=== PATIENT | female | born 1985 ===

== ENCOUNTER 2017-02-07 23:07 | Inpatient (IN) ==
[2017-02-07] MEDS ORDERED: OXYTOCIN/LR 20 UNIT/1,000 ML BAG IV ONE (23:17)
[2017-02-07] MEDS ORDERED: ONDANSETRON 4 MG/2 ML VIAL IV PRN (23:22)
[2017-02-07] MEDS ORDERED: MEPERIDINE 50 MG/1 ML VIAL IM PRN (23:22)
[2017-02-07] MEDS ORDERED: BUTORPHANOL 2 MG/ML VIAL IV PRN (23:22)
[2017-02-07] MEDS ORDERED: OXYTOCIN/LR 30 UNIT/1,000 ML BAG IV PRN (23:26)
[2017-02-07] MEDS ORDERED: CITRIC ACID/SODIUM CITRATE 30 ML UDCUP PO PRN (23:29)
[2017-02-07] MEDS ORDERED: OXYTOCIN/LR 20 UNIT/1,000 ML BAG IV PRN (23:29)
[2017-02-07] MEDS ORDERED: LACTATED RINGERS 1,000 ML IV SCH (23:30)
[2017-02-07] MEDS ORDERED: TERBUTALINE 1 MG/1 ML VIAL SUBCUT ONE ×2 (23:32→23:33)
[2017-02-07] MEDS ORDERED: OXYTOCIN 10 UNIT/ML VIAL ONE (23:39)
[2017-02-07] MEDS: FAMOTIDINE 20 MG/2 ML VIAL IV PRN (23:41)
[2017-02-07 23:47] LABS: Basophils % 0.3 % (0.0-0.8); Eosinophils # 0.2 10*3/uL (0.0-0.87); Eosinophils % 1.8 % (0.00-10.9); Hematocrit 31.6 VOL% (35.7-47.0); Immature Granulocytes % 0.9 %; Immature Granulocytes Absolute 0.11 #; Lymphocytes % 22.8 % (21.3-54.2); Mean Corpuscular HGB Conc 31.6 GM/DL (32-36); Mean Corpuscular Hemoglobin 25 PG (27-34); Mean Corpuscular Volume 77.6 FL (87-102); Monocytes # 0.7 10*3/uL (0.11-0.8); Monocytes % 5.4 % (1.7-12.7); Neutrophils # 8.9 10*3/uL (1.4-7.4); Neutrophils % 68.8 % (38.7-73.9); Platelet Count 262 T/CUMM (130-400); Red Blood Count 4.07 MC/CUMM (3.8-5.5); Red Cell Distribution Width 14.6 % (9.3-17.3); White Blood Count 12.9 T/CUMM (4-12)
[2017-02-08 00:13] LABS: Albumin 2.3 G/DL (3.4-5.0); Bilirubin,Total 0.7 MG/DL (0.2-1.0); Calcium 7.9 MG/DL (8.5-10.1); Osmolality,Calculated 274.5 MOS/KG (273-304); Potassium 3.9 MMOL/L (3.5-5.1); Total Protein 6.3 G/DL (6.4-8.3)
[2017-02-08 00:31] LABS: Cord Venous Blood HCO3 22.2 MMOL/L; Cord Venous Blood PCO2 42.3 MMHG; Cord Venous Blood PO2 62.2 MMHG
[2017-02-08] MEDS ORDERED: fentaNYL 100 MCG/2 ML VIAL ONE (00:35)
[2017-02-08] MEDS ORDERED: MIDAZOLAM 2 MG/2 ML VIAL ONE (00:35)
[2017-02-08] MEDS ORDERED: HYDROmorphone 2 MG/1 ML VIAL ONE (00:37)
[2017-02-08] MEDS ORDERED: ETOMIDATE 20 MG/10 ML VIAL IV ONE (00:39)
[2017-02-08] MEDS ORDERED: SUCCINYLCHOLINE 200 MG/10 ML VIAL ONE (00:39)
[2017-02-08] MEDS ORDERED: NALOXONE 0.4 MG/ML VIAL IV PRN (00:40)
[2017-02-08] MEDS ORDERED: HYDROmorphone 2 MG/1 ML VIAL IV ONE (00:40)
[2017-02-08 00:59] LABS: HIV Antigen/Antibody Result Nonreactive (Nonreactive); Hepatitis B Surface Ag Quant 0.54 Index; Hepatitis B Surface Ag Result Negative (Negative)
[2017-02-08] MEDS ORDERED: HYDROmorphone PCA 30 MG/30 ML SYRINGE IV SCH (01:00)
[2017-02-08] MEDS: FAMOTIDINE 20 MG/2 ML VIAL IV PRN (02:00)
[2017-02-08 03:04] LABS: Rubella Antibody IgG 11.9 IU/ML
[2017-02-08] MEDS ORDERED: OXYTOCIN/LR 20 UNIT/1,000 ML BAG IV ONE (03:45)
[2017-02-08] MEDS ORDERED: ONDANSETRON 4 MG/2 ML VIAL IV PRN (03:45)
[2017-02-08] MEDS ORDERED: LACTATED RINGERS 1,000 ML IV SCH (03:45)
[2017-02-08] MEDS ORDERED: RHO(D) IMMUNE GLOBULIN 300 MCG SYRINGE IM ONE (03:45)
[2017-02-08] MEDS ORDERED: ACETAMINOPHEN 325 MG TABLET PO PRN (03:45)
[2017-02-08] MEDS ORDERED: KETOROLAC 30 MG/1 ML VIAL IV PRN (05:05)
[2017-02-08 08:04] LABS: Basophils % 0.1 % (0.0-0.8); Eosinophils % 0.1 % (0.00-10.9); Hematocrit 27.7 VOL% (35.7-47.0); Hemoglobin 9.1 GM/DL (12.0-16.0); Immature Granulocytes % 0.6 %; Immature Granulocytes Absolute 0.12 #; Lymphocytes # 1.6 10*3/uL (1.4-4.0); Lymphocytes % 8.3 % (21.3-54.2); Mean Corpuscular HGB Conc 32.9 GM/DL (32-36); Mean Corpuscular Hemoglobin 25 PG (27-34); Mean Corpuscular Volume 74.9 FL (87-102); Mean Platelet Volume 9.5 FL (9.6-12.0); Neutrophils # 16.6 10*3/uL (1.4-7.4); Neutrophils % 85.9 % (38.7-73.9); Platelet Count 217 T/CUMM (130-400); Red Cell Distribution Width 14.5 % (9.3-17.3); White Blood Count 19.3 T/CUMM (4-12)
[2017-02-08] MEDS: DOCUSATE SODIUM 100 MG CAPSULE PO SCH ×3 (08:15→22:38)
[2017-02-08] MEDS: ceFAZolin 1,000 MG in SYRINGE 1 EACH IV SCH ×2 (08:15→15:25)
[2017-02-08] MEDS: MULTIVITAMIN (PRENATAL) TABLET PO SCH (08:15)
[2017-02-08] MEDS: IBUPROFEN 800 MG TABLET PO PRN (14:43)
[2017-02-08] MEDS: SIMETHICONE CHEW 80 MG TABLET PO PRN (19:18)
[2017-02-08] MEDS: MAGNESIUM HYDROXIDE SUSP 30 ML UDCUP PO PRN (19:18)
[2017-02-08] MEDS ORDERED: diphenhydrAMINE CAP 25 MG CAPSULE PO PRN (23:58)
[2017-02-09] MEDS ORDERED: diphenhydrAMINE CAP 25 MG CAPSULE ONE (00:05)
[2017-02-09] MEDS: METOCLOPRAMIDE 10 MG TABLET PO SCH ×4 (00:13→23:23)
[2017-02-09] MEDS ORDERED: BISACODYL 10 MG SUPP RECTAL PRN (00:56)
[2017-02-09] MEDS: IBUPROFEN 800 MG TABLET PO PRN ×3 (01:57→19:29)
[2017-02-09] MEDS ORDERED: BENZOCAINE/MENTHOL LOZENGE 18/BOX PO PRN (06:02)
[2017-02-09] MEDS: MULTIVITAMIN (PRENATAL) TABLET PO SCH (08:22)
[2017-02-09] MEDS: DOCUSATE SODIUM 100 MG CAPSULE PO SCH ×2 (08:22→23:19)
[2017-02-09] MEDS: MAGNESIUM HYDROXIDE SUSP 30 ML UDCUP PO PRN ×2 (08:23→23:19)
[2017-02-09] MEDS: FERROUS SULFATE 325 MG TABLET PO SCH ×3 (08:23→23:19)
[2017-02-09] MEDS ORDERED: IBUPROFEN 800 MG TABLET ONE (19:25)
[2017-02-09] MEDS ORDERED: LORazepam 1 MG TABLET PO PRN ×3 (22:58→23:30)
[2017-02-09] MEDS: SIMETHICONE CHEW 80 MG TABLET PO PRN (23:19)
[2017-02-10 07:40] VITALS: BP 108/68
[2017-02-10] MEDS: MULTIVITAMIN (PRENATAL) TABLET PO SCH (09:30)
[2017-02-10] MEDS: DOCUSATE SODIUM 100 MG CAPSULE PO SCH (09:30)
[2017-02-10] MEDS: FERROUS SULFATE 325 MG TABLET PO SCH (09:31)
[2017-02-10] MEDS: IBUPROFEN 800 MG TABLET PO PRN (11:59)
== END 2017-02-10 14:50 | disposition home or self-care (01) | DRG 540 ==
LOC: N.LDOUT 23:07 → N.LD 23:10 → N.OB 02-08 03:20
PROVIDERS: ADMIT Obstetrics & Gynecology; ATTEND Obstetrics & Gynecology
PROC: LDCSECT (ICD-10-PCS; 2017-02-07 23:55)

== ENCOUNTER 2017-12-16 04:36 | Inpatient (IN) ==
[2017-12-16] MEDS ORDERED: BUTORPHANOL 2 MG/ML VIAL IV PRN (05:12)
[2017-12-16] MEDS ORDERED: ONDANSETRON 4 MG/2 ML VIAL IV PRN (05:12)
[2017-12-16] MEDS: BETAMETH SODIUM PHOS/ACETATE 30 MG/5 ML VIAL IM SCH ×2 (05:19→17:03)
[2017-12-16 05:31] LABS: Apearance,Urine CLOUDY (Clear); Bilirubin,Urine Negative (Negative); Blood, Urine Negative (Negative); Glucose,Urine (UA) Negative (Negative); Ketones,Urine Negative (Negative); Mucus,Urine Occasional /LPF (Occasional); Nitrite,Urine Negative (Negative); Protein,Urine Negative; RBC,Urine 3 /HPF (0-4); Renal Epithelial Cells,Urine Occasional /HPF (<1); Squamous Epithelial Cell,Urine Occasional /HPF (0-10); Urine Color Red (Yellow); Urine Specific Gravity 1.013 (1.001-1.035); WBC,Urine 8 /HPF (0-6)
[2017-12-16] MEDS: LACTATED RINGERS 1,000 ML IV SCH ×3 (05:31→23:33)
[2017-12-16] MEDS ORDERED: MEPERIDINE 50 MG/1 ML VIAL IV PRN (05:33)
[2017-12-16 05:41] LABS: Barbiturates Screen,Urine Negative (Negative); Benzodiazepines Screen,Urine Negative (Negative); Cannabinoid Screen,Urine Negative (Negative); Opiate Screen,Urine Negative (Negative); Phencyclidine Screen,Urine Negative (Negative)
[2017-12-16 05:43] LABS: Basophils % 0.4 % (0.0-0.8); Eosinophils # 0.4 10*3/uL (0.0-0.87); Eosinophils % 3.9 % (0.00-10.9); Hemoglobin 9.3 GM/DL (12.0-16.0); Immature Granulocytes % 0.6 %; Immature Granulocytes Absolute 0.06 #; Lymphocytes # 2.7 10*3/uL (1.4-4.0); Mean Corpuscular Hemoglobin 24 PG (27-34); Mean Corpuscular Volume 76.5 FL (87-102); Mean Platelet Volume 9.9 FL (9.6-12.0); Monocytes # 0.5 10*3/uL (0.11-0.8); Monocytes % 5.4 % (1.7-12.7); Neutrophils # 6.2 10*3/uL (1.4-7.4); Neutrophils % 62.7 % (38.7-73.9); Platelet Count 196 T/CUMM (130-400); Red Blood Count 3.92 MC/CUMM (3.8-5.5); Red Cell Distribution Width 15.4 % (9.3-17.3); White Blood Count 9.8 T/CUMM (4-12)
[2017-12-16 06:09] LABS: Albumin 2.4 G/DL (3.4-5.0); Bilirubin,Total 0.4 MG/DL (0.2-1.0); Calcium 8.2 MG/DL (8.5-10.1); Osmolality,Calculated 276.4 MOS/KG (273-304); Potassium 3.6 MMOL/L (3.5-5.1); Total Protein 6.5 G/DL (6.4-8.3)
[2017-12-16] MEDS ORDERED: cefTRIAXone 1,000 MG in SYRINGE 1 EACH IV ONE (06:30)
[2017-12-16] MEDS ORDERED: diphenhydrAMINE 50 MG/1 ML VIAL IV ONE (06:51)
[2017-12-16] MEDS ORDERED: diphenhydrAMINE 50 MG/1 ML VIAL ONE (06:53)
[2017-12-16 07:34] VITALS: BP 114/66
[2017-12-16 09:31] LABS: HIV Antigen/Antibody Result Nonreactive (Nonreactive); Hepatitis B Surface Ag Quant < 0.10 Index; Hepatitis B Surface Ag Result Negative (Negative); Rubella Antibody IgG 9.6 IU/ML
[2017-12-16] MEDS: CLINDAMYCIN INJ 600 MG in PREMIX 1 EACH IV SCH ×2 (13:13→21:30)
[2017-12-16] MEDS: ACETAMINOPHEN 500 MG TABLET PO PRN (17:07)
[2017-12-16] MEDS ORDERED: PROMETHAZINE 25 MG/1 ML VIAL IM ONE (19:18)
[2017-12-16] MEDS ORDERED: MEPERIDINE 25 MG/1 ML VIAL IM ONE (19:18)
[2017-12-17] MEDS: CLINDAMYCIN INJ 600 MG in PREMIX 1 EACH IV SCH (05:46)
[2017-12-17 06:24] LABS: Basophils % 0.1 % (0.0-0.8); Hematocrit 30.3 VOL% (35.7-47.0); Hemoglobin 9.3 GM/DL (12.0-16.0); Immature Granulocytes Absolute 0.12 #; Lymphocytes # 1.3 10*3/uL (1.4-4.0); Lymphocytes % 10.6 % (21.3-54.2); Mean Corpuscular HGB Conc 30.7 GM/DL (32-36); Mean Corpuscular Hemoglobin 23 PG (27-34); Mean Corpuscular Volume 75.6 FL (87-102); Mean Platelet Volume 9.2 FL (9.6-12.0); Monocytes # 0.5 10*3/uL (0.11-0.8); Monocytes % 3.8 % (1.7-12.7); Neutrophils # 10.5 10*3/uL (1.4-7.4); Neutrophils % 84.5 % (38.7-73.9); Platelet Count 215 T/CUMM (130-400); Red Blood Count 4.01 MC/CUMM (3.8-5.5); Red Cell Distribution Width 15.5 % (9.3-17.3); White Blood Count 12.5 T/CUMM (4-12)
[2017-12-17] MEDS: BETAMETH SODIUM PHOS/ACETATE 30 MG/5 ML VIAL IM SCH (06:38)
[2017-12-17] MEDS: ACETAMINOPHEN 500 MG TABLET PO PRN (17:31)
[2017-12-18 06:05] LABS: Basophils % 0.2 % (0.0-0.8); Eosinophils % 0.2 % (0.00-10.9); Hematocrit 26.6 VOL% (35.7-47.0); Hemoglobin 8.3 GM/DL (12.0-16.0); Immature Granulocytes % 1.6 %; Lymphocytes # 2.3 10*3/uL (1.4-4.0); Lymphocytes % 18.3 % (21.3-54.2); Mean Corpuscular HGB Conc 31.2 GM/DL (32-36); Mean Corpuscular Hemoglobin 24 PG (27-34); Mean Corpuscular Volume 75.6 FL (87-102); Mean Platelet Volume 9.7 FL (9.6-12.0); Monocytes # 0.8 10*3/uL (0.11-0.8); Monocytes % 6.7 % (1.7-12.7); Platelet Count 209 T/CUMM (130-400); Red Blood Count 3.52 MC/CUMM (3.8-5.5); Red Cell Distribution Width 15.8 % (9.3-17.3); White Blood Count 12.3 T/CUMM (4-12)
== END 2017-12-18 11:36 | disposition home or self-care (01) | DRG 566 ==
LOC: N.LDOUT 04:36 → N.LD 04:38
PROVIDERS: ADMIT Obstetrics & Gynecology; ATTEND Obstetrics & Gynecology

== ENCOUNTER 2018-02-02 15:28 | Inpatient (IN) ==
[2018-02-02] MEDS ORDERED: CITRIC ACID/SODIUM CITRATE 30 ML UDCUP PO ONE (15:58)
[2018-02-02] MEDS ORDERED: CLINDAMYCIN INJ 900 MG in PREMIX 1 EACH IV ONE (15:58)
[2018-02-02] MEDS ORDERED: FAMOTIDINE 20 MG/2 ML VIAL IV ONE (15:58)
[2018-02-02] MEDS ORDERED: OXYTOCIN/LR 30 UNIT/1,000 ML BAG IV ONE (16:00)
[2018-02-02] MEDS ORDERED: OXYTOCIN 10 UNIT/ML VIAL IM ONE (16:00)
[2018-02-02 16:27] LABS: Basophils % 0.4 % (0.0-0.8); Eosinophils # 0.3 10*3/uL (0.0-0.87); Eosinophils % 2.4 % (0.00-10.9); Hematocrit 29.2 VOL% (35.7-47.0); Hemoglobin 8.8 GM/DL (12.0-16.0); Immature Granulocytes % 0.6 %; Immature Granulocytes Absolute 0.06 #; Lymphocytes # 2.5 10*3/uL (1.4-4.0); Lymphocytes % 24.3 % (21.3-54.2); Mean Corpuscular HGB Conc 30.1 GM/DL (32-36); Mean Corpuscular Hemoglobin 22 PG (27-34); Mean Corpuscular Volume 71.4 FL (87-102); Mean Platelet Volume 9.4 FL (9.6-12.0); Monocytes # 0.6 10*3/uL (0.11-0.8); Monocytes % 6.2 % (1.7-12.7); Neutrophils # 6.8 10*3/uL (1.4-7.4); Neutrophils % 66.1 % (38.7-73.9); Platelet Count 289 T/CUMM (130-400); Red Blood Count 4.09 MC/CUMM (3.8-5.5); Red Cell Distribution Width 16.2 % (9.3-17.3); White Blood Count 10.2 T/CUMM (4-12)
[2018-02-02] MEDS: LACTATED RINGERS 1,000 ML IV SCH ×2 (16:49→16:51)
[2018-02-02 16:50] LABS: Alanine Aminotransferase 11 U/L (13-56); Albumin 2.5 G/DL (3.4-5.0); Alkaline Phosphatase 168 U/L (45-117); Aspartate Amino Transferase 14 U/L (0-37); Bilirubin,Total < 0.39 MG/DL (0.2-1.0); Blood Urea Nitrogen 11 MG/DL (7-18); Calcium 8.2 MG/DL (8.5-10.1); Glucose 89 MG/DL (74-106); Osmolality,Calculated 276.4 MOS/KG (273-304); Potassium 3.8 MMOL/L (3.5-5.1); Sodium 140 MMOL/L (136-145); Total Protein 6.8 G/DL (6.4-8.3)
[2018-02-02 17:50] LABS: Cord Arterial Blood HCO3 21.4 MMOL/L; Cord Venous Blood HCO3 24.7 MMOL/L; Cord Venous Blood PCO2 42.8 MMHG; Cord Venous Blood PO2 32.6 MMHG
[2018-02-02 17:55] LABS: Apearance,Urine CLEAR (Clear); Bacteria,Urine Occasional /HPF (Few); Bilirubin,Urine Negative (Negative); Blood, Urine Negative (Negative); Glucose,Urine (UA) Negative (Negative); Ketones,Urine Negative (Negative); Mucus,Urine Occasional /LPF (Occasional); Nitrite,Urine Negative (Negative); Protein,Urine Negative; RBC,Urine 1 /HPF (0-4); Squamous Epithelial Cell,Urine Occasional /HPF (0-10); Urine Color Yellow (Yellow); Urine Specific Gravity 1.017 (1.001-1.035); WBC,Urine 1 /HPF (0-6)
[2018-02-02] MEDS ORDERED: fentaNYL 100 MCG/2 ML VIAL ONE (18:10)
[2018-02-02] MEDS ORDERED: MIDAZOLAM 2 MG/2 ML VIAL ONE (18:10)
[2018-02-02] MEDS ORDERED: ONDANSETRON 4 MG/2 ML VIAL ONE ×2 (18:11→18:34)
[2018-02-02] MEDS ORDERED: MORPHINE 10 MG/10 ML VIAL ONE (18:11)
[2018-02-02] MEDS ORDERED: BUPIVACAINE SPINAL 0.75% 2 ML AMP SPINAL ONE (18:11)
[2018-02-02] MEDS ORDERED: ONDANSETRON 4 MG/2 ML VIAL IV PRN ×2 (18:30→18:53)
[2018-02-02] MEDS ORDERED: RHO(D) IMMUNE GLOBULIN 300 MCG SYRINGE IM ONE (18:53)
[2018-02-02] MEDS ORDERED: SIMETHICONE CHEW 80 MG TABLET PO PRN (18:53)
[2018-02-02] MEDS ORDERED: OXYTOCIN/LR 20 UNIT/1,000 ML BAG IV ONE (18:53)
[2018-02-02] MEDS ORDERED: ACETAMINOPHEN 325 MG TABLET PO PRN (18:53)
[2018-02-02] MEDS ORDERED: diphenhydrAMINE 50 MG/1 ML VIAL IV PRN (20:04)
[2018-02-02] MEDS ORDERED: hydrOXYzine HCL 25 MG/1 ML VIAL IM PRN (22:05)
[2018-02-02] MEDS: DOCUSATE SODIUM 100 MG CAPSULE PO SCH (23:06)
[2018-02-03] MEDS: IBUPROFEN 800 MG TABLET PO PRN ×3 (01:26→19:40)
[2018-02-03] MEDS: ceFAZolin 1,000 MG in SYRINGE 1 EACH IV SCH ×2 (04:36→11:17)
[2018-02-03] MEDS: LACTATED RINGERS 1,000 ML IV SCH ×2 (04:55)
[2018-02-03 05:55] LABS: Basophils # 0.1 10*3/uL (0.0-0.2); Basophils % 0.4 % (0.0-0.8); Eosinophils # 0.1 10*3/uL (0.0-0.87); Eosinophils % 0.9 % (0.00-10.9); Hematocrit 25.2 VOL% (35.7-47.0); Hemoglobin 7.8 GM/DL (12.0-16.0); Immature Granulocytes % 0.5 %; Immature Granulocytes Absolute 0.06 #; Lymphocytes # 2.8 10*3/uL (1.4-4.0); Lymphocytes % 21.1 % (21.3-54.2); Mean Corpuscular Hemoglobin 22 PG (27-34); Mean Corpuscular Volume 70.6 FL (87-102); Mean Platelet Volume 9.9 FL (9.6-12.0); Monocytes # 0.9 10*3/uL (0.11-0.8); Monocytes % 6.7 % (1.7-12.7); Neutrophils # 9.2 10*3/uL (1.4-7.4); Neutrophils % 70.4 % (38.7-73.9); Platelet Count 240 T/CUMM (130-400); Red Blood Count 3.57 MC/CUMM (3.8-5.5); Red Cell Distribution Width 16.2 % (9.3-17.3); White Blood Count 13.1 T/CUMM (4-12)
[2018-02-03] MEDS: MAGNESIUM HYDROXIDE SUSP 30 ML UDCUP PO PRN ×2 (09:03→19:40)
[2018-02-03] MEDS: MULTIVITAMIN (PRENATAL) TABLET PO SCH (09:03)
[2018-02-03] MEDS: FERROUS SULFATE 325 MG TABLET PO SCH ×3 (09:03→21:00)
[2018-02-03] MEDS: DOCUSATE SODIUM 100 MG CAPSULE PO SCH ×3 (09:03→21:00)
[2018-02-03] MEDS ORDERED: SODIUM CHLORIDE 0.9% 1,000 ML IV PRN (10:19)
[2018-02-03 18:29] LABS: Hematocrit 32.8 VOL% (35.7-47.0); Hemoglobin 10.4 GM/DL (12.0-16.0)
[2018-02-04 07:41] VITALS: BP 106/67
[2018-02-04] MEDS: MULTIVITAMIN (PRENATAL) TABLET PO SCH (09:57)
[2018-02-04] MEDS: FERROUS SULFATE 325 MG TABLET PO SCH (09:57)
[2018-02-04] MEDS: DOCUSATE SODIUM 100 MG CAPSULE PO SCH (09:57)
[2018-02-04] MEDS ORDERED: INFLUENZA VIRUS VACCINE 0.5 ML SYRINGE IM ONE (10:00)
== END 2018-02-04 12:30 | disposition home or self-care (01) | DRG 540 ==
LOC: N.LDOUT 15:28 → N.LD 15:29 → N.OB 21:38
PROVIDERS: ADMIT Obstetrics & Gynecology; ATTEND Obstetrics & Gynecology
PROC: LDCSECT (ICD-10-PCS; 2018-02-02 16:00)

== ENCOUNTER 2018-12-20 05:39 | Inpatient (IN) ==
[2018-12-20] MEDS ORDERED: LACTATED RINGERS 500 ML IV PRN (06:06)
[2018-12-20] MEDS ORDERED: ONDANSETRON 4 MG/2 ML VIAL IV PRN ×2 (06:06→09:39)
[2018-12-20] MEDS ORDERED: LACTATED RINGERS 1,000 ML IV SCH ×2 (06:30→10:00)
[2018-12-20] MEDS ORDERED: CITRIC ACID/SODIUM CITRATE 30 ML UDCUP PO ONE (06:33)
[2018-12-20] MEDS ORDERED: CLINDAMYCIN INJ 900 MG in PREMIX 1 EACH IV ONE (06:33)
[2018-12-20] MEDS ORDERED: FAMOTIDINE 20 MG/2 ML VIAL IV ONE (06:33)
[2018-12-20] MEDS ORDERED: OXYTOCIN/LR 30 UNIT/1,000 ML BAG IV ONE (06:33)
[2018-12-20] MEDS ORDERED: OXYTOCIN 10 UNIT/ML VIAL IM ONE (06:33)
[2018-12-20 06:53] LABS: Basophils % 0.3 % (0.0-0.8); Eosinophils # 0.4 10*3/uL (0.0-0.87); Eosinophils % 4.8 % (0.00-10.9); Hematocrit 29.6 VOL% (35.7-47.0); Hemoglobin 8.8 GM/DL (12.0-16.0); Immature Granulocytes % 0.6 %; Immature Granulocytes Absolute 0.05 #; Lymphocytes # 2.3 10*3/uL (1.4-4.0); Lymphocytes % 29.6 % (21.3-54.2); Mean Corpuscular HGB Conc 29.7 GM/DL (32-36); Mean Corpuscular Volume 71.8 FL (87-102); Mean Platelet Volume 10.1 FL (9.6-12.0); Monocytes % 6.9 % (1.7-12.7); Neutrophils % 57.8 % (38.7-73.9); Platelet Count 246 T/CUMM (130-400); Red Blood Count 4.12 MC/CUMM (3.8-5.5); Red Cell Distribution Width 17.8 % (9.3-17.3); White Blood Count 7.9 T/CUMM (4-12)
[2018-12-20 07:34] LABS: Alanine Aminotransferase < 9 U/L (13-56); Albumin 2.4 G/DL (3.4-5.0); Alkaline Phosphatase 147 U/L (45-117); Aspartate Amino Transferase 12 U/L (0-37); Blood Urea Nitrogen 10 MG/DL (7-18); Calcium 8.3 MG/DL (8.5-10.1); Estimated Glom Filtration Rate 142 ML/MIN; Glucose 81 MG/DL (74-106); Osmolality,Calculated 274.5 MOS/KG (273-304); Total Protein 6.5 G/DL (6.4-8.3)
[2018-12-20] MEDS ORDERED: DEXAMETHASONE 4 MG/1 ML VIAL ONE (08:28)
[2018-12-20] MEDS ORDERED: ROPIVACAINE 0.5% 30 ML VIAL ONE (08:28)
[2018-12-20] MEDS ORDERED: ACETAMINOPHEN 325 MG TABLET PO PRN (09:39)
[2018-12-20] MEDS ORDERED: SIMETHICONE CHEW 80 MG TABLET PO PRN (09:39)
[2018-12-20] MEDS ORDERED: MAGNESIUM HYDROXIDE SUSP 30 ML UDCUP PO PRN (09:39)
[2018-12-20] MEDS ORDERED: OXYTOCIN/LR 20 UNIT/1,000 ML BAG IV ONE (09:39)
[2018-12-20] MEDS ORDERED: RHO(D) IMMUNE GLOBULIN 300 MCG SYRINGE IM ONE (09:39)
[2018-12-20] MEDS ORDERED: PHENYLEPHRINE 1 MG/10 ML SYRINGE IV ONE (10:00)
[2018-12-20] MEDS ORDERED: fentaNYL 100 MCG/2 ML VIAL ONE (10:00)
[2018-12-20] MEDS ORDERED: MIDAZOLAM 2 MG/2 ML VIAL ONE (10:00)
[2018-12-20] MEDS ORDERED: ceFAZolin 1,000 MG in SYRINGE 1 EACH IV SCH (10:00)
[2018-12-20] MEDS ORDERED: BUPIVACAINE SPINAL 0.75% 2 ML AMP SPINAL ONE (10:01)
[2018-12-20] MEDS ORDERED: MORPHINE 10 MG/10 ML VIAL ONE (10:01)
[2018-12-20 10:08] LABS: Apearance,Urine Clear (Clear); Bilirubin,Urine Negative (Negative); Blood, Urine NEGATIVE (Negative); Glucose,Urine (UA) Negative (Negative); Ketones,Urine Negative (Negative); Mucus,Urine Few /LPF (Occasional); Nitrite,Urine Negative (Negative); Protein,Urine 30 MG/DL; RBC,Urine <1 /HPF (0-4); Squamous Epithelial Cell,Urine Few /HPF (0-10); Urine Color Amber (Yellow); Urine Specific Gravity 1.025 (1.001-1.035); WBC,Urine <1 /HPF (0-6)
[2018-12-20] MEDS ORDERED: diphenhydrAMINE 50 MG/1 ML VIAL IV PRN (11:20)
[2018-12-20] MEDS ORDERED: CLINDAMYCIN INJ 900 MG in PREMIX 1 EACH IV SCH (12:09)
[2018-12-20] MEDS: IBUPROFEN 800 MG TABLET PO PRN (12:59)
[2018-12-20] MEDS: CLINDAMYCIN INJ 900 MG in PREMIX 1 EACH IV SCH (16:23)
[2018-12-20 16:54] LABS: Basophils % 0.1 % (0.0-0.8); Hematocrit 29.2 VOL% (35.7-47.0); Hemoglobin 8.7 GM/DL (12.0-16.0); Immature Granulocytes % 0.8 %; Immature Granulocytes Absolute 0.12 #; Lymphocytes % 6.8 % (21.3-54.2); Mean Corpuscular HGB Conc 29.8 GM/DL (32-36); Mean Corpuscular Volume 71.7 FL (87-102); Monocytes % 1.9 % (1.7-12.7); Neutrophils % 90.4 % (38.7-73.9); Platelet Count 232 T/CUMM (130-400); Red Blood Count 4.07 MC/CUMM (3.8-5.5); Red Cell Distribution Width 17.5 % (9.3-17.3)
[2018-12-20 16:56] LABS: White Blood Count 15.4 T/CUMM (4-12)
[2018-12-20] MEDS ORDERED: METOCLOPRAMIDE 10 MG TABLET PO SCH (19:00)
[2018-12-20] MEDS ORDERED: FERROUS SULFATE 325 MG TABLET PO SCH (21:00)
[2018-12-20] MEDS: DOCUSATE SODIUM 100 MG CAPSULE PO SCH (21:24)
[2018-12-21] MEDS: CLINDAMYCIN INJ 900 MG in PREMIX 1 EACH IV SCH (01:02)
[2018-12-21] MEDS: ALUMINUM/MAGNES/SIMETH MAX STR 30 ML UDCUP PO PRN ×2 (01:56→07:22)
[2018-12-21 05:16] LABS: Basophils % 0.2 % (0.0-0.8); Eosinophils # 0.1 10*3/uL (0.0-0.87); Eosinophils % 0.7 % (0.00-10.9); Hematocrit 26.4 VOL% (35.7-47.0); Hemoglobin 7.9 GM/DL (12.0-16.0); Immature Granulocytes Absolute 0.15 #; Lymphocytes # 3.1 10*3/uL (1.4-4.0); Lymphocytes % 20.8 % (21.3-54.2); Mean Corpuscular HGB Conc 29.9 GM/DL (32-36); Mean Corpuscular Volume 71.9 FL (87-102); Mean Platelet Volume 9.9 FL (9.6-12.0); Monocytes % 8.8 % (1.7-12.7); NRBC # 0.02 10*3/uL; Neutrophils % 68.5 % (38.7-73.9); Platelet Count 240 T/CUMM (130-400); Red Blood Count 3.67 MC/CUMM (3.8-5.5); Red Cell Distribution Width 17.7 % (9.3-17.3)
[2018-12-21] MEDS: METOCLOPRAMIDE 10 MG TABLET PO SCH ×2 (07:22→14:54)
[2018-12-21] MEDS: FERROUS SULFATE 325 MG TABLET PO SCH ×3 (08:35→21:08)
[2018-12-21] MEDS: DOCUSATE SODIUM 100 MG CAPSULE PO SCH ×2 (08:35→21:08)
[2018-12-21] MEDS: MULTIVITAMIN (PRENATAL) TABLET PO SCH (08:36)
[2018-12-21] MEDS ORDERED: SODIUM CHLORIDE 0.9% 1,000 ML IV PRN (09:20)
[2018-12-21 18:30] LABS: Hematocrit 33.2 VOL% (35.7-47.0)
[2018-12-21 18:31] LABS: Hemoglobin 10.1 GM/DL (12.0-16.0)
[2018-12-21] MEDS: IBUPROFEN 800 MG TABLET PO PRN (21:08)
[2018-12-22] MEDS: METOCLOPRAMIDE 10 MG TABLET PO SCH (04:40)
[2018-12-22] MEDS: FERROUS SULFATE 325 MG TABLET PO SCH (09:26)
[2018-12-22] MEDS: DOCUSATE SODIUM 100 MG CAPSULE PO SCH (09:26)
[2018-12-22] MEDS: MULTIVITAMIN (PRENATAL) TABLET PO SCH (09:29)
[2018-12-22] MEDS: IBUPROFEN 800 MG TABLET PO PRN (09:36)
[2018-12-22 11:26] VITALS: BP 114/75
== END 2018-12-22 16:00 | disposition home or self-care (01) | DRG 540 ==
LOC: N.LDOUT 05:39 → N.LD 05:41 → N.OB 12:14
PROVIDERS: ADMIT Obstetrics & Gynecology; ATTEND Obstetrics & Gynecology
PROC: LDCSECT (ICD-10-PCS; 2018-12-20 08:30)

== ENCOUNTER 2020-01-19 18:58 | Inpatient (IN) ==
[2020-01-19] MEDS ORDERED: oxyCODONE/ACETAMINOPHEN 5-325 MG TABLET PO ONE (19:52)
[2020-01-19 20:00] LABS: Bacteria,Urine Occasional /HPF (Few); Bilirubin,Urine Small mg/dL (Negative); Blood, Urine Moderate mg/dL (Negative); Glucose,Urine (UA) Negative (Negative); Ketones,Urine Negative (Negative); Mucus,Urine Few /LPF (Occasional); Nitrite,Urine Negative (Negative); Protein,Urine 30 MG/DL; RBC,Urine 169 /HPF (0-4); Squamous Epithelial Cell,Urine Occasional /HPF (0-10); Urine Appearance CLEAR (Clear); Urine Color Amber (Yellow); Urine Specific Gravity 1.031 (1.001-1.035)
[2020-01-19] MEDS: LACTATED RINGERS 1,000 ML IV SCH ×2 (20:00→22:32)
[2020-01-19] MEDS ORDERED: miSOPROStoL 200 MCG TABLET ONE (20:22)
[2020-01-19] MEDS: TERBUTALINE 1 MG/1 ML VIAL SUBCUT SCH ×2 (22:29→23:30)
[2020-01-19] MEDS ORDERED: MEPERIDINE 50 MG/1 ML VIAL IV ONE (22:30)
[2020-01-19] MEDS: ONDANSETRON 4 MG/2 ML VIAL IV PRN (22:46)
[2020-01-20] MEDS: MEPERIDINE 50 MG/1 ML VIAL IV PRN ×2 (03:14→13:46)
[2020-01-20] MEDS ORDERED: MAGNESIUM SULF RIDER 100 ML IV ONE ×2 (03:36)
[2020-01-20] MEDS ORDERED: CALCIUM GLUCONATE 1,000 MG in SODIUM CHLORIDE 0.9% 100 ML IV PRN (03:36)
[2020-01-20] MEDS ORDERED: AMPICILLIN 2,000 MG VIAL ONE (03:45)
[2020-01-20] MEDS ORDERED: SODIUM CHLORIDE 0.9% 100 ML IV ONE (03:45)
[2020-01-20] MEDS: BETAMETH SODIUM PHOS/ACETATE 30 MG/5 ML VIAL IM SCH (03:53)
[2020-01-20] MEDS: MAGNESIUM SULF DRIP 40 GM/1,000 ML ML IV SCH ×2 (03:58→19:12)
[2020-01-20 04:00] LABS: Basophils % 0.4 % (0.0-0.8); Eosinophils # 0.1 10*3/uL (0.0-0.87); Eosinophils % 0.6 % (0.00-10.9); Hematocrit 29.4 VOL% (35.7-47.0); Hemoglobin 9.1 GM/DL (12.0-16.0); Immature Granulocytes % 0.6 %; Immature Granulocytes Absolute 0.06 #; Lymphocytes # 2.5 10*3/uL (1.4-4.0); Lymphocytes % 23.4 % (21.3-54.2); Mean Corpuscular Volume 73.9 FL (87-102); Mean Platelet Volume 9.8 FL (9.6-12.0); Monocytes % 4.6 % (1.7-12.7); Neutrophils % 70.4 % (38.7-73.9); Platelet Count 206 T/CUMM (130-400); Red Blood Count 3.98 MC/CUMM (3.8-5.5); Red Cell Distribution Width 15.5 % (9.3-17.3); White Blood Count 10.9 T/CUMM (4-12)
[2020-01-20] MEDS: AMPICILLIN INJ 2,000 MG in SODIUM CHLORIDE 0.9% 100 ML IV SCH ×3 (04:03→19:10)
[2020-01-20] MEDS ORDERED: TERBUTALINE 1 MG/1 ML VIAL ONE (04:21)
[2020-01-20 04:26] LABS: Alanine Aminotransferase < 6 U/L (13-56); Albumin 2.3 G/DL (3.4-5.0); Alkaline Phosphatase 123 U/L (45-117); Aspartate Amino Transferase 13 U/L (0-37); Bilirubin,Total < 0.39 MG/DL (0.2-1.0); Blood Urea Nitrogen 7 MG/DL (7-18); Calcium 8.1 MG/DL (8.5-10.1); Estimated Glom Filtration Rate 137 ML/MIN; Glucose 79 MG/DL (74-106); Osmolality,Calculated 269.8 MOS/KG (273-304); Total Protein 6.1 G/DL (6.4-8.3)
[2020-01-20] MEDS: ACETAMINOPHEN 500 MG TABLET PO PRN ×2 (11:46→19:44)
[2020-01-20] MEDS: PHENAZOPYRIDINE 95 MG TABLET PO SCH ×4 (13:38→22:46)
[2020-01-20] MEDS: ONDANSETRON 4 MG/2 ML VIAL IV PRN ×2 (13:46→21:09)
[2020-01-20 20:23] LABS: Barbiturates Screen,Urine Negative (Negative); Benzodiazepines Screen,Urine Negative (Negative); Cannabinoid Screen,Urine Negative (Negative); Opiate Screen,Urine Negative (Negative); Phencyclidine Screen,Urine Negative (Negative)
[2020-01-20] MEDS ORDERED: INFLUENZA VIRUS VACCINE 0.5 ML SYRINGE IM ONE (21:00)
[2020-01-21] MEDS: MEPERIDINE 50 MG/1 ML VIAL IV PRN (00:17)
[2020-01-21] MEDS: AMPICILLIN INJ 2,000 MG in SODIUM CHLORIDE 0.9% 100 ML IV SCH (00:41)
[2020-01-21] MEDS: BETAMETH SODIUM PHOS/ACETATE 30 MG/5 ML VIAL IM SCH (04:11)
[2020-01-21] MEDS: ACETAMINOPHEN 500 MG TABLET PO PRN (05:06)
[2020-01-21] MEDS: PHENAZOPYRIDINE 95 MG TABLET PO SCH (05:29)
[2020-01-21] MEDS ORDERED: CLINDAMYCIN INJ 900 MG in PREMIX 1 EACH IV ONE (07:26)
[2020-01-21] MEDS ORDERED: FAMOTIDINE 20 MG/2 ML VIAL IV ONE ×3 (07:26→10:52)
[2020-01-21] MEDS ORDERED: CITRIC ACID/SODIUM CITRATE 30 ML UDCUP PO ONE (07:26)
[2020-01-21] MEDS ORDERED: CITRIC ACID/SODIUM CITRATE 30 ML UDCUP ONE (07:33)
[2020-01-21] MEDS: LACTATED RINGERS 1,000 ML IV SCH (07:50)
[2020-01-21] MEDS ORDERED: miSOPROStoL 200 MCG TABLET ONE (07:55)
[2020-01-21] MEDS ORDERED: OXYTOCIN/LR 20 UNIT/1,000 ML BAG IV ONE ×2 (07:55→09:39)
[2020-01-21] MEDS ORDERED: METHYLERGONOVINE 0.2 MG/1 ML AMP ONE (07:56)
[2020-01-21] MEDS ORDERED: OXYTOCIN 10 UNIT/ML VIAL ONE ×2 (07:56→07:57)
[2020-01-21] MEDS ORDERED: CARBOPROST TROMETHAMINE 250 MCG/ML AMP IM ONE (07:56)
[2020-01-21] MEDS ORDERED: TRANEXAMIC ACID 1,000 MG/10 ML VIAL ONE (08:23)
[2020-01-21] MEDS ORDERED: SODIUM CHLORIDE 0.9% 0 ML IV ONE (08:23)
[2020-01-21] MEDS ORDERED: ONDANSETRON 4 MG/2 ML VIAL ONE (08:36)
[2020-01-21] MEDS ORDERED: PHENYLEPHRINE 1 MG/10 ML SYRINGE IV ONE ×2 (08:36→09:05)
[2020-01-21] MEDS ORDERED: MORPHINE 10 MG/10 ML VIAL ONE (08:37)
[2020-01-21] MEDS ORDERED: fentaNYL 100 MCG/2 ML VIAL ONE (08:37)
[2020-01-21] MEDS ORDERED: ROPIVACAINE 0.5% 30 ML VIAL ONE (09:29)
[2020-01-21] MEDS ORDERED: ACETAMINOPHEN 325 MG TABLET PO PRN (09:39)
[2020-01-21] MEDS ORDERED: ONDANSETRON 4 MG/2 ML VIAL IV PRN (09:39)
[2020-01-21] MEDS ORDERED: RHO(D) IMMUNE GLOBULIN 300 MCG SYRINGE IM ONE (09:39)
[2020-01-21 09:44] LABS: Cord Venous Blood HCO3 21.4 MMOL/L; Cord Venous Blood PCO2 54.6 MMHG; Cord Venous Blood PO2 19.8
[2020-01-21 09:50] LABS: Cord Arterial Blood HCO3 21.6 MMOL/L
[2020-01-21 09:53] LABS: Cord Venous Blood HCO3 22.3 MMOL/L; Cord Venous Blood PO2 20.6
[2020-01-21] MEDS ORDERED: LACTATED RINGERS 1,000 ML IV SCH (10:00)
[2020-01-21] MEDS ORDERED: ceFAZolin 1,000 MG in SYRINGE 1 EACH IV SCH (10:00)
[2020-01-21] MEDS ORDERED: diphenhydrAMINE 50 MG/1 ML VIAL IV ONE (10:15)
[2020-01-21] MEDS ORDERED: diphenhydrAMINE 50 MG/1 ML VIAL ONE (10:19)
[2020-01-21] MEDS ORDERED: PROMETHAZINE INJ 12.5 MG in SODIUM CHLORIDE 0.9% 50 ML IV ONE (11:12)
[2020-01-21] MEDS: CLINDAMYCIN INJ 900 MG in PREMIX 1 EACH IV SCH (16:28)
[2020-01-21 17:38] LABS: Hemoglobin 9.4 GM/DL (12.0-16.0)
[2020-01-21] MEDS: DOCUSATE SODIUM 100 MG CAPSULE PO SCH (21:19)
[2020-01-22] MEDS: CLINDAMYCIN INJ 900 MG in PREMIX 1 EACH IV SCH (00:30)
[2020-01-22] MEDS: diphenhydrAMINE CAP 25 MG CAPSULE PO PRN ×2 (00:45→22:48)
[2020-01-22] MEDS: IBUPROFEN 800 MG TABLET PO PRN ×2 (00:48→19:56)
[2020-01-22 05:28] LABS: Basophils % 0.1 % (0.0-0.8); Hematocrit 27.9 VOL% (35.7-47.0); Hemoglobin 8.6 GM/DL (12.0-16.0); Immature Granulocytes % 0.9 %; Immature Granulocytes Absolute 0.13 #; Lymphocytes # 2.1 10*3/uL (1.4-4.0); Lymphocytes % 14.7 % (21.3-54.2); Mean Corpuscular HGB Conc 30.8 GM/DL (32-36); Mean Corpuscular Volume 74.2 FL (87-102); Mean Platelet Volume 9.9 FL (9.6-12.0); Monocytes % 7.9 % (1.7-12.7); Neutrophils % 76.4 % (38.7-73.9); Platelet Count 202 T/CUMM (130-400); Red Blood Count 3.76 MC/CUMM (3.8-5.5); Red Cell Distribution Width 15.7 % (9.3-17.3); White Blood Count 14.5 T/CUMM (4-12)
[2020-01-22] MEDS: SIMETHICONE CHEW 80 MG TABLET PO PRN ×2 (08:41→19:56)
[2020-01-22] MEDS: FERROUS SULFATE 325 MG TABLET PO SCH ×3 (08:41→22:56)
[2020-01-22] MEDS: MAGNESIUM HYDROXIDE SUSP 30 ML UDCUP PO PRN ×2 (08:41→19:56)
[2020-01-22] MEDS: MULTIVITAMIN (PRENATAL) TABLET PO SCH (08:41)
[2020-01-22] MEDS: DOCUSATE SODIUM 100 MG CAPSULE PO SCH ×3 (08:43→22:55)
[2020-01-22] MEDS ORDERED: oxyCODONE/ACETAMINOPHEN 5-325 MG TABLET PO PRN (20:04)
[2020-01-22] MEDS: oxyCODONE/ACETAMINOPHEN 5-325 MG TABLET PO PRN (20:34)
[2020-01-23] MEDS: IBUPROFEN 800 MG TABLET PO PRN (03:22)
[2020-01-23 07:38] VITALS: BP 109/51
[2020-01-23] MEDS: SIMETHICONE CHEW 80 MG TABLET PO PRN (08:20)
[2020-01-23] MEDS: DOCUSATE SODIUM 100 MG CAPSULE PO SCH (08:20)
[2020-01-23] MEDS: MAGNESIUM HYDROXIDE SUSP 30 ML UDCUP PO PRN (08:20)
[2020-01-23] MEDS: MULTIVITAMIN (PRENATAL) TABLET PO SCH (08:20)
[2020-01-23] MEDS: FERROUS SULFATE 325 MG TABLET PO SCH (08:20)
[2020-01-23] MEDS: oxyCODONE/ACETAMINOPHEN 5-325 MG TABLET PO PRN (08:23)
== END 2020-01-23 10:50 | disposition home or self-care (01) | DRG 540 ==
LOC: N.LDOUT 18:58 → N.LD 18:59 → N.OB 01-21 12:01
PROVIDERS: ADMIT Obstetrics & Gynecology; ATTEND Obstetrics & Gynecology
PROC: LDCSECT (ICD-10-PCS; 2020-01-21 08:30)

== ENCOUNTER 2021-04-13 16:25 | Inpatient (IN) ==
[2021-04-13] MEDS ORDERED: CITRIC ACID/SODIUM CITRATE 30 ML UDCUP PO ONE (16:46)
[2021-04-13] MEDS ORDERED: OXYTOCIN 10 UNIT/ML VIAL IM ONE (16:51)
[2021-04-13] MEDS ORDERED: OXYTOCIN/LR 30 UNIT/1,000 ML BAG IV ONE ×2 (16:51→19:08)
[2021-04-13] MEDS ORDERED: FAMOTIDINE 20 MG/2 ML VIAL IV ONE (16:53)
[2021-04-13] MEDS ORDERED: CLINDAMYCIN INJ 900 MG/50 ML PREMIX IV ONE (16:54)
[2021-04-13] MEDS ORDERED: LACTATED RINGERS 1,000 ML IV SCH ×2 (17:00→19:30)
[2021-04-13] MEDS ORDERED: miSOPROStoL 200 MCG TABLET ONE (17:08)
[2021-04-13] MEDS ORDERED: TRANEXAMIC ACID 1,000 MG/10 ML VIAL ONE (17:09)
[2021-04-13] MEDS ORDERED: CARBOPROST TROMETHAMINE 250 MCG/ML AMP IM ONE (17:09)
[2021-04-13] MEDS ORDERED: METHYLERGONOVINE 0.2 MG/1 ML AMP ONE (17:09)
[2021-04-13] MEDS ORDERED: SODIUM CHLORIDE 0.9% 0 ML IV ONE (17:09)
[2021-04-13] MEDS ORDERED: BUPIVACAINE SPINAL 0.75% 2 ML AMP SPINAL ONE (17:18)
[2021-04-13] MEDS ORDERED: ONDANSETRON 4 MG/2 ML VIAL ONE (17:19)
[2021-04-13 17:40] LABS: Bilirubin,Total 0.4 MG/DL (0.20-1.00); Calcium 8.1 MG/DL (8.5-10.1); Osmolality,Calculated 275.5 MOS/KG (273-304); Potassium 3.5 MMOL/L (3.5-5.1); Total Protein 6.4 G/DL (6.4-8.2)
[2021-04-13 17:49] LABS: Bacteria,Urine Occasional /HPF (Few); Blood, Urine Small mg/dL (Negative); Glucose,Urine (UA) Negative (Negative); Ketones,Urine Negative (Negative); Mucus,Urine Many /LPF (Occasional); Nitrite,Urine Negative (Negative); Protein,Urine 30 MG/DL; RBC,Urine 3 /HPF (0-4); Squamous Epithelial Cell,Urine Occasional /HPF (0-10); Urine Appearance CLEAR (Clear); Urine Color Amber (Yellow)
[2021-04-13 17:53] LABS: Bilirubin,Urine Small mg/dL (Negative)
[2021-04-13 18:01] LABS: Basophils % 0.2 % (0.0-0.8); Eosinophils # 0.1 10*3/uL (0.0-0.87); Hematocrit 26.1 VOL% (35.7-47.0); Hemoglobin 7.3 GM/DL (12.0-16.0); Immature Granulocytes % 0.7 %; Immature Granulocytes Absolute 0.07 #; Lymphocytes # 2.1 10*3/uL (1.4-4.0); Lymphocytes % 21.8 % (21.3-54.2); Mean Corpuscular Volume 66.8 FL (87-102); Mean Platelet Volume 9.6 FL (9.6-12.0); Monocytes % 4.8 % (1.7-12.7); NRBC # 0.03 10*3/uL; Neutrophils % 71.5 % (38.7-73.9); Platelet Count 293 T/CUMM (130-400); Red Blood Count 3.91 MC/CUMM (3.8-5.5); Red Cell Distribution Width 18.5 % (9.3-17.3); White Blood Count 9.7 T/CUMM (4-12)
[2021-04-13] MEDS ORDERED: SODIUM CHLORIDE 0.9% 1,000 ML IV PRN (18:09)
[2021-04-13] MEDS ORDERED: ACETAMINOPHEN INJ 1,000 MG/100 ML VIAL IV ONE (18:32)
[2021-04-13] MEDS ORDERED: SODIUM CHLORIDE 0.9% 1,000 ML IV ONE (18:32)
[2021-04-13 18:38] LABS: Cord Arterial Blood HCO3 25.9 MMOL/L
[2021-04-13 18:41] LABS: Cord Venous Blood HCO3 22.1 MMOL/L; Cord Venous Blood PCO2 39.8 MMHG; Cord Venous Blood PO2 30.6 MMHG
[2021-04-13 18:47] LABS: Barbiturates Screen,Urine Negative (Negative); Benzodiazepines Screen,Urine Negative (Negative); Cannabinoid Screen,Urine Positive (Negative); Opiate Screen,Urine Negative (Negative); Phencyclidine Screen,Urine Negative (Negative)
[2021-04-13] MEDS ORDERED: MAGNESIUM HYDROXIDE SUSP 30 ML UDCUP PO PRN (19:04)
[2021-04-13] MEDS ORDERED: RHO(D) IMMUNE GLOBULIN 300 MCG SYRINGE IM ONE (19:04)
[2021-04-13] MEDS ORDERED: OXYTOCIN/LR 20 UNIT/1,000 ML BAG IV ONE (19:04)
[2021-04-13] MEDS ORDERED: ACETAMINOPHEN 325 MG TABLET PO PRN (19:04)
[2021-04-13] MEDS ORDERED: SIMETHICONE CHEW 80 MG TABLET PO PRN (19:04)
[2021-04-13] MEDS ORDERED: ONDANSETRON 4 MG/2 ML VIAL IV PRN (19:04)
[2021-04-13] MEDS ORDERED: diphenhydrAMINE 50 MG/1 ML VIAL IM PRN (19:59)
[2021-04-13] MEDS ORDERED: diphenhydrAMINE 50 MG/1 ML VIAL IV PRN (20:11)
[2021-04-13] MEDS: IBUPROFEN 800 MG TABLET PO PRN (21:28)
[2021-04-13] MEDS: DOCUSATE SODIUM 100 MG CAPSULE PO SCH (21:28)
[2021-04-14] MEDS ORDERED: ACETAMINOPHEN 500 MG TABLET PO SCH (01:00)
[2021-04-14 01:44] LABS: Basophils % 0.1 % (0.0-0.8); Eosinophils # 0.2 10*3/uL (0.0-0.87); Eosinophils % 1.2 % (0.00-10.9); Hematocrit 28.8 VOL% (35.7-47.0); Hemoglobin 8.3 GM/DL (12.0-16.0); Immature Granulocytes % 0.7 %; Immature Granulocytes Absolute 0.08 #; Lymphocytes # 3.2 10*3/uL (1.4-4.0); Mean Corpuscular HGB Conc 28.8 GM/DL (32-36); Mean Corpuscular Volume 67.8 FL (87-102); Mean Platelet Volume 9.5 FL (9.6-12.0); Monocytes % 4.6 % (1.7-12.7); NRBC # 0.02 10*3/uL; Neutrophils % 67.4 % (38.7-73.9); Platelet Count 238 T/CUMM (130-400); Red Blood Count 4.25 MC/CUMM (3.8-5.5); Red Cell Distribution Width 21.8 % (9.3-17.3); White Blood Count 12.3 T/CUMM (4-12)
[2021-04-14 01:45] LABS: Anisocytosis 1+; Microcytosis 1+; Platelet Estimate Adequate
[2021-04-14] MEDS: IBUPROFEN 800 MG TABLET PO PRN ×2 (06:07→17:32)
[2021-04-14 07:13] LABS: Basophils % 0.2 % (0.0-0.8); Eosinophils # 0.2 10*3/uL (0.0-0.87); Hematocrit 29.5 VOL% (35.7-47.0); Hemoglobin 8.5 GM/DL (12.0-16.0); Immature Granulocytes % 0.7 %; Immature Granulocytes Absolute 0.08 #; Lymphocytes % 27.7 % (21.3-54.2); Mean Corpuscular HGB Conc 28.8 GM/DL (32-36); Mean Corpuscular Volume 68.3 FL (87-102); Mean Platelet Volume 9.6 FL (9.6-12.0); Monocytes % 5.7 % (1.7-12.7); NRBC # 0.02 10*3/uL; Neutrophils % 63.7 % (38.7-73.9); Platelet Count 223 T/CUMM (130-400); Red Blood Count 4.32 MC/CUMM (3.8-5.5); Red Cell Distribution Width 21.9 % (9.3-17.3); White Blood Count 10.7 T/CUMM (4-12)
[2021-04-14 07:19] LABS: Hypochromia 1+; Microcytosis 1+
[2021-04-14 07:20] LABS: Anisocytosis 1+; Platelet Estimate Normal
[2021-04-14] MEDS: DOCUSATE SODIUM 100 MG CAPSULE PO SCH ×2 (18:56→21:16)
[2021-04-14] MEDS: MULTIVITAMIN (PRENATAL) TABLET PO SCH (18:56)
[2021-04-14] MEDS: FERROUS SULFATE 325 MG TABLET PO SCH ×2 (18:56→21:16)
[2021-04-14] MEDS: METOCLOPRAMIDE 10 MG TABLET PO SCH (18:57)
[2021-04-15] MEDS: METOCLOPRAMIDE 10 MG TABLET PO SCH (00:48)
[2021-04-15] MEDS: IBUPROFEN 800 MG TABLET PO PRN (03:55)
[2021-04-15 07:22] VITALS: BP 112/70
[2021-04-15] MEDS: FERROUS SULFATE 325 MG TABLET PO SCH (08:12)
[2021-04-15] MEDS: MULTIVITAMIN (PRENATAL) TABLET PO SCH (08:13)
[2021-04-15] MEDS: DOCUSATE SODIUM 100 MG CAPSULE PO SCH (08:13)
== END 2021-04-15 11:15 | disposition home or self-care (01) | DRG 539 ==
LOC: N.LDOUT 16:25 → N.LD 16:28 → N.OB 23:00
PROVIDERS: ADMIT Obstetrics & Gynecology; ATTEND Obstetrics & Gynecology